=== PATIENT | female | born 1955 | race Caucasian/White ===

== ENCOUNTER 2019-12-09 09:09 | Observation (INO) ==
[2019-12-09] MEDS ORDERED: HYDROmorphone 2 MG/1 ML VIAL IV PRN (10:53)
[2019-12-09] MEDS ORDERED: ACETAMINOPHEN 325 MG TABLET PO PRN (10:53)
[2019-12-09] MEDS ORDERED: ONDANSETRON 4 MG/2 ML VIAL IV PRN (10:53)
[2019-12-09] MEDS ORDERED: ALBUTEROL/IPRATROPIUM 3 ML NEB RESP TX PRN (10:53)
[2019-12-09 12:48] LABS: Basophils % 0.1 % (0.0-0.8); Eosinophils % 0.2 % (0.00-10.9); Hematocrit 41.5 VOL% (35.7-47.0); Hemoglobin 13.7 GM/DL (12.0-16.0); Immature Granulocytes % 0.7 %; Immature Granulocytes Absolute 0.12 #; Lymphocytes # 1.2 10*3/uL (1.4-4.0); Lymphocytes % 7.3 % (21.3-54.2); Mean Platelet Volume 10.4 FL (9.6-12.0); Neutrophils % 83.7 % (38.7-73.9); Platelet Count 273 T/CUMM (130-400); Red Blood Count 4.28 MC/CUMM (3.8-5.5); Red Cell Distribution Width 11.9 % (9.3-17.3); White Blood Count 16.5 T/CUMM (4-12)
[2019-12-09 13:06] LABS: Albumin 3.6 G/DL (3.4-5.0); Calcium 9.4 MG/DL (8.5-10.1); Osmolality,Calculated 256.8 MOS/KG (273-304); Total Protein 6.7 G/DL (6.4-8.3)
[2019-12-09] MEDS: LACTATED RINGERS 1,000 ML IV SCH ×2 (14:15→23:50)
[2019-12-09 14:27] LABS: Albumin 3.7 G/DL (3.4-5.0); Calcium 9.3 MG/DL (8.5-10.1); Osmolality,Calculated 258.7 MOS/KG (273-304); Total Protein 7.2 G/DL (6.4-8.3)
[2019-12-09] MEDS ORDERED: BISACODYL 5 MG TABLET PO PRN (15:07)
[2019-12-09] MEDS: KETOROLAC 15 MG/1 ML VIAL IV PRN (15:16)
[2019-12-09] MEDS ORDERED: LACTATED RINGERS 1,000 ML IV ONE (15:30)
[2019-12-09 17:37] LABS: Apearance,Urine CLEAR (Clear); Bacteria,Urine Occasional /HPF (Few); Bilirubin,Urine Negative (Negative); Blood, Urine Moderate mg/dL (Negative); Glucose,Urine (UA) Negative (Negative); Ketones,Urine 20 mg/dL (Negative); Mucus,Urine Occasional /LPF (Occasional); Nitrite,Urine Negative (Negative); Protein,Urine Negative; RBC,Urine 3 /HPF (0-4); Urine Color Yellow (Yellow); Urine Urobilinogen < 2.0 EU/DL (0.2-1.0); WBC,Urine 2 /HPF (0-6)
[2019-12-10 05:33] LABS: Basophils % 0.2 % (0.0-0.8); Eosinophils # 0.2 10*3/uL (0.0-0.87); Eosinophils % 1.9 % (0.00-10.9); Hematocrit 34.4 VOL% (35.7-47.0); Hemoglobin 11.4 GM/DL (12.0-16.0); Immature Granulocytes % 0.3 %; Immature Granulocytes Absolute 0.04 #; Lymphocytes # 1.7 10*3/uL (1.4-4.0); Mean Corpuscular HGB Conc 33.1 GM/DL (32-36); Mean Corpuscular Volume 97.7 FL (87-102); Mean Platelet Volume 10.5 FL (9.6-12.0); Monocytes % 9.8 % (1.7-12.7); Neutrophils % 73.8 % (38.7-73.9); Platelet Count 204 T/CUMM (130-400); Red Blood Count 3.52 MC/CUMM (3.8-5.5); Red Cell Distribution Width 11.9 % (9.3-17.3); White Blood Count 11.8 T/CUMM (4-12)
[2019-12-10 05:51] LABS: Albumin 2.7 G/DL (3.4-5.0); Bilirubin,Total 1.1 MG/DL (0.2-1.0); Calcium 8.3 MG/DL (8.5-10.1); Osmolality,Calculated 270.7 MOS/KG (273-304); Total Protein 5.8 G/DL (6.4-8.3)
[2019-12-10] MEDS ORDERED: PANTOPRAZOLE 40 MG TABLET PO ONE (06:00)
[2019-12-10] MEDS ORDERED: DIAZEPAM 5 MG TABLET PO ONE (06:00)
[2019-12-10] MEDS: LACTATED RINGERS 1,000 ML IV SCH ×3 (07:36→18:36)
[2019-12-10] MEDS ORDERED: TISSUE ADHESIVE 1 EACH APPLICATOR TOP ONE (08:14)
[2019-12-10] MEDS ORDERED: BUPIVACAINE MPF 0.25% 30 ML VIAL ONE (08:14)
[2019-12-10] MEDS ORDERED: LIDOCAINE 1%/EPI INJ 20 ML VIAL ONE (08:14)
[2019-12-10] MEDS ORDERED: LIDOCAINE 2% 5 ML VIAL ONE (10:03)
[2019-12-10] MEDS ORDERED: propofoL 200 MG/20 ML VIAL IV ONE (10:03)
[2019-12-10] MEDS ORDERED: KETOROLAC 30 MG/1 ML VIAL ONE (10:04)
[2019-12-10] MEDS ORDERED: ONDANSETRON 4 MG/2 ML VIAL ONE (10:04)
[2019-12-10] MEDS ORDERED: fentaNYL 100 MCG/2 ML VIAL ONE (10:04)
[2019-12-10] MEDS ORDERED: SEVOFLURANE 1 UNIT/15 MINUTE INH ONE (10:04)
[2019-12-10] MEDS ORDERED: GLYCOPYRROLATE 0.4 MG/2 ML VIAL ONE (10:04)
[2019-12-10] MEDS ORDERED: MIDAZOLAM 2 MG/2 ML VIAL ONE (10:04)
[2019-12-10] MEDS ORDERED: DEXAMETHASONE 4 MG/1 ML VIAL ONE (10:04)
[2019-12-10] MEDS ORDERED: PHENYLEPHRINE 1 MG/10 ML SYRINGE IV ONE (10:04)
[2019-12-10] MEDS ORDERED: SUCCINYLCHOLINE 200 MG/10 ML VIAL ONE (10:05)
[2019-12-10] MEDS ORDERED: ROCURONIUM 100 MG/10 ML VIAL IV ONE (10:05)
[2019-12-10] MEDS ORDERED: NEOSTIGMINE 10 MG/10 ML VIAL ONE (10:05)
[2019-12-10] MEDS ORDERED: ONDANSETRON 4 MG/2 ML VIAL IV PRN (10:20)
[2019-12-10] MEDS: PANTOPRAZOLE 40 MG TABLET PO SCH (10:44)
[2019-12-10] MEDS: KETOROLAC 15 MG/1 ML VIAL IV PRN (11:57)
[2019-12-10] MEDS: cefOXitin 2,000 MG in SYRINGE 1 EACH IV SCH ×2 (15:54→21:21)
[2019-12-11] MEDS: cefOXitin 2,000 MG in SYRINGE 1 EACH IV SCH (01:12)
[2019-12-11] MEDS: LACTATED RINGERS 1,000 ML IV SCH (01:17)
[2019-12-11] MEDS: PANTOPRAZOLE 40 MG TABLET PO SCH (09:36)
[2019-12-11 11:29] VITALS: BP 114/57
== END 2019-12-11 11:36 | disposition home or self-care (01) ==
LOC: N.CT 09:09 → N.3E 09:09
PROVIDERS: ADMIT Surgery; ATTEND Surgery
PROC: LAPCHOL (2019-12-10 08:37)